=== PATIENT | male | born 1965 | race African-American/Black ===

== ENCOUNTER 2017-10-23 21:28 | Emergency (ER) | payer OTHER ==
--- NOTE | 2017-10-23 21:46 | PDOC ---
History of Present Illness - General Chief Complaint: Chest Pain Stated Complaint: CHEST PAIN Time Seen by Provider: 10/23/17 21:38 - History of Present Illness Initial Comments: This 52-year-old man with a history of Shannan's thyroiditis, presents with a few hour history of lower substernal chest pain radiating to the back. Patient states the pain began while he was drinking beer (while drinking second bottle) . He had no associated shortness of breath/nausea/diaphoresis. Patient states that it was similar to his previous "heartburn" pain but was more severe than previous episodes. The pain has improved although he still has mild pain in that area. Patient usually takes "Tums" for his heartburn. No history of GERD/ known peptic ulcer disease. Patient has not taken H2 nicolette/PPI therapy in the past. Patient denies pain/shortness of breath with stairclimbing or other mild exertion. No change in pain with deep breathing, movement or change in position No history of hypertension/diabetes mellitus/hyperlipidemia/strong family history. Positive history of smoking (patient admits 5 cigarettes per day for many years) Past History - Past Medical History Allergies/Adverse Reactions: Allergies Allergy/AdvReac Type Severity Reaction Status Date / Time No Known Allergies Allergy Verified 06/18/15 16:52 Home Medications: Ambulatory Orders Famotidine [Pepcid] 40 mg PO DAILY #20 tablet 10/23/17 Levothyroxine [Synthroid -] 100 mcg PO DAILY 10/23/17 Anemia: No Asthma: No COPD: No CHF: No Diabetes: No HTN: No Hypercholesterolemia: No Thyroid Disease: Yes (Shannan's thyroiditis) - Suicide/Smoking/Psychosocial Hx Smoking Status: Yes Smoking History: Current every day smoker Have you smoked in the past 12 months: Yes Number of Cigarettes Smoked Daily: 10 'Breaking Loose' booklet given: 08/11/12 Hx Alcohol Use: No Drug/Substance Use Hx: No Substance Use Type: None Review of Systems - Review of Systems Able to Perform ROS?: Yes Comments:: 12 point review of systems is negative except for what is noted in the history of present illness *Physical Exam - Vital Signs Last Vital Signs Temp Pulse Resp BP Pulse Ox 98.8 F 72 18 129/80 100 10/23/17 21:29 10/23/17 21:58 10/23/17 21:58 10/23/17 21:58 10/23/17 21:58 - Physical Exam Comments: GENERAL: Adult male, alert and oriented 3, in no acute distress HEAD: Normal with no signs of trauma. EYES: PERRLA, EOMI, sclera anicteric, conjunctiva clear. ENT: Ears normal, nares patent, oropharynx clear without exudates. Moist mucous membranes. NECK: Normal range of motion, supple without lymphadenopathy, JVD, or masses. LUNGS: Breath sounds equal, clear to auscultation bilaterally. No wheezes, and no crackles. HEART:Regular rate and rhythm, normal S1 and S2 without murmur, rub or gallop. ABDOMEN:.normal bowel sounds No guarding,tenderness or rebound.No masses No distention. EXTREMITIES: Normal range of motion, no edema. No clubbing or cyanosis. No erythema, or tenderness. NEUROLOGICAL: Cranial nerves II through XII grossly intact. Normal speech. No focal neurological deficits. MUSCULOSKELETAL: Back non-tender to palpation, no CVA tenderness SKIN: Warm, Dry, normal turgor, no rashes or lesions noted. 12-lead electrocardiogram was performed and interpreted by me: Normal sinus rhythm at 72 bpm; axis, intervals and wave forms are all normal. No evidence of acute ST or T-wave abnormalities. There is no significant change compared to tracing dated 06/18/15 Heart Score/ECG Review - History History: Slightly suspicious - Electrocardiogram EKG: Non specific repolarization disturbance - Age Age: 45-65 - Risk Factors Risk Factors Heart Score: Yes Smoking History Based on the list above the patient has:: 1-2 risk factors - Troponin Troponin: </= normal limit - Score Heart Score - Total: 3 ED Treatment Course - LABORATORY CBC & Chemistry Diagram: 10/23/17 21:45 10/23/17 21:45 - ADDITIONAL ORDERS Additional order review: Laboratory Results 10/23/17 10/23/17 10/23/17 23:15 23:15 21:45 PT with INR 12.9 INR 1.16 Sodium Potassium Chloride Carbon Dioxide Anion Gap BUN Creatinine Creat Clearance w eGFR Random Glucose Calcium Total Bilirubin AST ALT Alkaline Phosphatase Creatine Kinase 450 H Creatine Kinase Index 0.6 CK-MB (CK-2) 2.8 Troponin I < 0.03 Total Protein Albumin 10/23/17 10/23/17 21:45 21:45 PT with INR INR Sodium 136 Potassium 3.9 Chloride 102 Carbon Dioxide 26 Anion Gap 8 BUN 12 Creatinine 1.1 Creat Clearance w eGFR > 60 Random Glucose 114 H Calcium 8.8 Total Bilirubin 0.5 AST 27 ALT 28 Alkaline Phosphatase 62 Creatine Kinase 490 H Creatine Kinase Index 0.6 CK-MB (CK-2) 3.1 Troponin I < 0.03 Total Protein 7.3 Albumin 4.1 10/23/17 21:45 RBC 5.25 MCV 87.5 MCHC 33.4 RDW 12.9 MPV 7.2 L Neutrophils % 48.1 Lymphocytes % 39.1 Monocytes % 8.2 Eosinophils % 3.6 Basophils % 1.0 - Medications Given in the ED: ED Medications Discontinued Medications Generic Name Dose Route Start Last Admin Trade Name Andi PRN Reason Stop Dose Admin Al Hydroxide/Mg Hydroxide 30 ml 10/23/17 22:40 10/23/17 22:42 Mylanta Oral Suspension - PO 10/23/17 22:41 30 ml ONCE ONE Administration Famotidine/Sodium Chloride 20 mg in 50 mls @ 100 mls/hr 10/23/17 22:42 22:46 Pepcid 20 Mg Premixed Ivpb - IVPB 10/23/17 23:11 100 mls/hr ONCE ONE Administration Medical Decision Making - Medical Decision Making Patient's heart score is 3. Only significant risk factor for coronary artery disease is smoking history. Patient describes lower substernal chest pain, radiating to the back, beginning as he is drinking beer. He states that it is similar to his usual gastrointestinal "heartburn", which is responsive to antacids. This episode is notable because pain is more severe than usual. There are no other associated symptoms. As noted above, 12-lead electrocardiogram shows no evidence of acute ST or T- wave abnormalities First troponin is less than 0.03. Remainder of the laboratory evaluation is essentially normal 10/23/17 23:08 Patient now pain-free after 30 mL Mylanta PO and 20 mg Pepcid IV. Second troponin to be drawn. 10/24/17 00:11 Second troponin less than 0.03. Patient remains pain-free and comfortable. Patient will be discharged with instructions to take Pepcid 40 mg daily until seen by his PMD, Dr. Alcantar. In the meantime, the patient will avoid alcohol and foods that he usually cause him " heartburn". He will return to the emergency room if he has persistent pain or experiences shortness of breath , nausea *DC/Admit/Observation/Transfer Diagnosis at time of Disposition: Atypical chest pain - Discharge Dispostion Disposition: HOME Condition at time of disposition: Stable - Prescriptions Prescriptions: Famotidine [Pepcid] 40 mg PO DAILY #20 tablet - Referrals Referrals: Ele Benito MD [Primary Care Provider] - - Patient Instructions Printed Discharge Instructions: DI for Atypical Chest Pain Additional Instructions: pepcid 40 mg daily you can take tums/maalox as needed for heartburn avoid alcohol for the next week followup with Dr Alcantar within 5-7 days return to ER if you have persistent chest pain, shortness of breath or nausea - Post Discharge Activity
[2017-10-23 21:58] VITALS: BP 129/80; PULSE 72; TEMP 98.8; BMI 36.1
[2017-10-23 22:02] LABS: EOS % 3.6 % (0-4.5); HEMATOCRIT 45.9 % (35.4-49); HEMOGLOBIN 15.3 GM/dl (11.7-16.9); LYMPH % 39.1 % (8-40); MCH 29.2 pg (25.7-33.7); MCHC 33.4 g/dl (32.0-35.9); MEAN CELL VOLUME 87.5 fl (80-96); MEAN PLT VOLUME 7.2 fl (7.5-11.1); MONO % 8.2 % (3.8-10.2); NEUT % 48.1 % (42.8-82.8); PLATELET COUNT 274 K/MM3 (134-434); RBC 5.25 M/mm3 (4.00-5.60); RDW 12.9 % (11.9-15.9); WHITE BLOOD COUNT 5.9 K/mm3 (4.0-10.8)
[2017-10-23 22:12] LABS: INR 1.16 (0.82-1.09); PROTHROMBIN TIME (PATIENT) 12.9 SEC (10.2-13.0)
[2017-10-23 22:17] LABS: ALBUMIN 4.1 g/dl (3.5-5.0); ALK PHOS 62 U/L (32-92); ANION GAP 8 (8-16); BILIRUBIN,TOTAL 0.5 mg/dl (0.2-1.0); BLOOD UREA NITROGEN 12 mg/dl (7-18); CALCIUM 8.8 mg/dl (8.4-10.2); CHLORIDE 102 mmol/L (98-107); CO2 26 mmol/L (22-28); CREATININE 1.1 mg/dl (0.6-1.3); GLUCOSE,RANDOM 114 mg/dl (74-106); POTASSIUM 3.9 mmol/L (3.5-5.1); SGOT/AST 27 U/L (10-42); SGPT/ALT 28 U/L (10-40); SODIUM 136 mmol/L (136-145); TOT PROT 7.3 g/dl (6.4-8.3)
[2017-10-23] MEDS ORDERED: MAG HYDROX/AL HYDROX/SIMETH 30 ML UNIT-DOSE CUP PO ONE (22:40)
[2017-10-23] MEDS ORDERED: FAMOTIDINE 20 MG/50 ML IVPB 20 MG/50 ML MG IVPB ONE ×2 (22:42→22:43)
[2017-10-23] MEDS ORDERED: MAG HYDROX/AL HYDROX/SIMETH 30 ML UNIT-DOSE CUP ONE (22:43)
--- NOTE | 2017-10-24 09:45 | EKG ---
Test Reason : Blood Pressure : / mmHG Vent. Rate : 072 BPM Atrial Rate : 072 BPM P-R Int : 182 ms QRS Dur : 100 ms QT Int : 398 ms P-R-T Axes : 038 043 042 degrees QTc Int : 435 ms NORMAL SINUS RHYTHM NONSPECIFIC T WAVE ABNORMALITY NON-SPECIFIC INTRA-VENTRICULAR CONDUCTION DELAY ABNORMAL ECG Confirmed by LA KLINE MD ([id number]) on 10/24/2017 9:45:33 AM Referred By: Alma VANEGAS Confirmed By:LA KLINE MD
== END 2017-10-23 23:51 | disposition home or self-care (01) ==
LOC: FER 21:28
PROC: 3E033GC Introduction of Other Therapeutic Substance into Peripheral Vein, Percutaneous Approach (ICD-10-PCS; principal; 2017-10-23)
DX: R07.89 Other chest pain (principal); Z87.891 Personal history of nicotine dependence; E06.3 Autoimmune thyroiditis
CPT/HCPCS: 36415; 80053; 82550; 82553; 84484; 85025; 85610; 93005; 99284-25

== ENCOUNTER 2018-12-21 19:45 | Emergency (ER) | payer OTHER ==
[2018-12-21] MEDS ORDERED: ASPIRIN 81 MG CHEWABLE TABLETS PO ONE (20:19)
--- NOTE | 2018-12-21 20:19 | PDOC ---
Rapid Medical Evaluation Time Seen by Provider: 12/21/18 20:18 Medical Evaluation: Allergies Allergy/AdvReac Type Severity Reaction Status Date / Time No Known Allergies Allergy Verified 06/18/15 16:52 12/21/18 20:18 HPI: CP and L shoulder and arm pain x4 days PE: No gross deficits ORDERS: Cardiac work up Discharge Disposition - Diagnosis Chest pain - Referrals - Patient Instructions - Post Discharge Activity
[2018-12-21 20:22] VITALS: BP 130/80; PULSE 74; TEMP 97.8; BMI 36.9
[2018-12-21] MEDS ORDERED: ASPIRIN 81 MG CHEWABLE TABLETS ONE (21:24)
[2018-12-21 21:34] LABS: BASO % 0.9 % (0-2.0); EOS % 4.3 % (0-4.5); HEMOGLOBIN 14.6 GM/dL (11.7-16.9); MCH 29.2 pg (25.7-33.7); MCHC 33.2 g/dl (32.0-35.9); MEAN PLT VOLUME 7.5 fl (7.5-11.1); MONO % 7.2 % (3.8-10.2); NEUT % 49.6 % (42.8-82.8); PLATELET COUNT 232 K/MM3 (134-434); RDW 13.7 % (11.9-15.9)
--- NOTE | 2018-12-21 21:37 | PDOC ---
History of Present Illness - General Chief Complaint: Chest Pain Stated Complaint: CHEST PAIN Time Seen by Provider: 12/21/18 20:18 History Source: Patient Exam Limitations: No Limitations - History of Present Illness Initial Comments: 12/21/18 21:33 53yo M with PMH of BPH presenting to ED with complaint of L shoulder pain radiating to the arm and L chest pain x3d. Pt states he was at work when he started to feel the pain. Pain is intermittent, sometimes associated with movements. He has not had pain like this before. Also endorses soreness in bilateral calves. Denies injury, cough, sob, fever, chills, pain with exertion, abdominal pain, n/v/d, back pain, neck pain, headache. No family history of ID. Patient does smoke 1ppd. No recent travel, leg swelling. PMD: Ortiz PMH: see hpi PSH: none Meds: Tamsulosin Allergies: nkda Social: 1ppd Past History - Past Medical History Allergies/Adverse Reactions: Allergies Allergy/AdvReac Type Severity Reaction Status Date / Time No Known Allergies Allergy Verified 06/18/15 16:52 Home Medications: Ambulatory Orders Famotidine [Pepcid] 40 mg PO DAILY #20 tablet 10/23/17 Levothyroxine [Synthroid -] 100 mcg PO DAILY 10/23/17 Anemia: No Asthma: No COPD: No CHF: No Diabetes: No HTN: No Hypercholesterolemia: No Thyroid Disease: Yes (Shannan's thyroiditis) - Suicide/Smoking/Psychosocial Hx Smoking Status: Yes Smoking History: Current every day smoker Have you smoked in the past 12 months: Yes Number of Cigarettes Smoked Daily: 20 Information on smoking cessation initiated: Yes 'Breaking Loose' booklet given: 08/11/12 Hx Alcohol Use: No Drug/Substance Use Hx: No Substance Use Type: None Review of Systems - Review of Systems Constitutional: No: Symptoms Reported HEENTM: No: Symptoms Reported Respiratory: No: Symptoms reported Cardiac (ROS): Yes: See HPI ABD/GI: No: Symptoms Reported : No: Symptoms Reported Musculoskeletal: Yes: See HPI Integumentary: No: Symptoms Reported Neurological: No: Symptoms reported *Physical Exam - Vital Signs Last Vital Signs Temp Pulse Resp BP Pulse Ox 97.8 F 74 20 130/80 99 12/21/18 20:18 12/21/18 20:18 08/12/19 20:18 12/21/18 20:18 12/21/18 20:18 - Physical Exam General Appearance: Yes: Nourished, Appropriately Dressed. No: Apparent Distress HEENT: positive: EOMI, CRISTIN Neck: positive: Trachea midline, Supple. negative: Lymphadenopathy (R), Lymphadenopathy (L) Respiratory/Chest: positive: Lungs Clear, Normal Breath Sounds. negative: Chest Tender, Crackles, Rales, Stridor, Wheezing Cardiovascular: positive: Regular Rhythm, Regular Rate, S1, S2. negative: Edema , JVD, Murmur Vascular Pulses: Dorsalis-Pedis (R): 2+, Doralis-Pedis (L): 2+ Gastrointestinal/Abdominal: positive: Normal Bowel Sounds, Soft. negative: Tender Musculoskeletal: positive: Muscle Spasm (L side cervical spine. L trapezius tenderness reproducing pain). negative: CVA Tenderness, Vertebral Tenderness Extremity: positive: Normal Capillary Refill. negative: Pedal Edema, Swelling, Calf Tenderness Integumentary: positive: Normal Color, Dry, Warm Neurologic: positive: cell tester II-XII NML intact, Fully Oriented, Alert, Normal Mood/ Affect, Normal Response, Motor Strength 5/5 ED Treatment Course - LABORATORY CBC & Chemistry Diagram: 12/21/18 21:15 12/21/18 21:15 Medical Decision Making - Medical Decision Making 12/21/18 21:36 53yo M with PMH of BPH presenting to ED with complaint of L shoulder pain radiating to the arm and L chest pain x3d. Pt states he was at work when he started to feel the pain. Pain is intermittent, sometimes associated with movements. He has not had pain like this before. Also endorses soreness in bilateral calves. Denies injury, cough, sob, fever, chills, pain with exertion, abdominal pain, n/v/d, back pain, neck pain, headache. No family history of ID. Patient does smoke 1ppd. No recent travel, leg swelling. Vitals: wnl PE: reproducible shoulder/arm pain. no chest wall tenderness. ddx includes but not limited to msk/strain, acs, gerd, radiculopathy likely msk given reproducibility but will get labs and trop, ekg, cxr. 12/21/18 21:48 ekg: nsr at 72bpm pr 160 qtc 427. no bandar or depressions. flat T in aVL. no TWI 12/22/18 03:27 labs wnl. Given Tylenol and ASA Pt stats he is feeling better. CXR: no infiltrates or consolidations. Pt likely has radiculopathy and msk pain. low suspicion for ACS given duration and reporducibility of pain. Will dc home with neuro and cadiology f/u. pt agrees to plan. given return precautions *DC/Admit/Observation/Transfer Diagnosis at time of Disposition: Musculoskeletal pain Chest pain Qualifiers: Chest pain type: unspecified Qualified Code(s): R07.9 - Chest pain, unspecified Radiculopathy Qualifiers: Spinal region: unspecified Qualified Code(s): M54.10 - Radiculopathy, site unspecified - Discharge Dispostion Disposition: HOME Condition at time of disposition: Improved - Referrals Referrals: Royal Alcantar MD [Primary Care Provider] - Larry Mazariegos MD [Staff Physician] - Sachin Hanna MD [Staff Physician] - - Patient Instructions Printed Discharge Instructions: DI for Cervical Radiculopathy, DI for Chest Pain Additional Instructions: You were seen in the emergency room today for shoulder, arm and chest pain. This is likely due to the muscles. Your blood work, ekg and xray are normal. You might have cervical radiculopathy which is pain that is in the neck and/or shoulders and goes down your arm. You can take Tylenol or Motrin for the pain as needed. I recommend following up with a neurologist for the radiculopathy and a public information coordinator as well. Information is provided below. Come back to the emergency room for worsening chest pain, difficulty breathing, weakness in the left arm, numbness/tingling or if any new concerning symptom develops. Thank you - Post Discharge Activity
[2018-12-21] MEDS ORDERED: ACETAMINOPHEN 500 MG TABLET (FP) PO ONE (21:43)
[2018-12-21 21:51] LABS: INR 1.06 (0.83-1.09); PROTHROMBIN TIME (PATIENT) 12.5 SEC (9.7-13.0)
[2018-12-21 22:01] LABS: ALBUMIN 3.9 g/dl (3.4-5.0); BILIRUBIN,TOTAL 0.6 mg/dL (0.2-1); CALCIUM 8.8 mg/dL (8.5-10.1); CREATININE 1.3 mg/dL (0.55-1.3); MAGNESIUM 2.1 mg/dL (1.8-2.4); POTASSIUM 4.6 mmol/L (3.5-5.1)
[2018-12-21] MEDS ORDERED: ACETAMINOPHEN 325 MG TABLET (FP) ONE (22:28)
--- NOTE | 2018-12-21 22:34 | PDOC ---
Documentation entered by Rochelle Pettit SCRIBE, acting as scribe for Ventura Sanchez MD. Ventura Sanchez MD: This documentation has been prepared by the dwaineibe, Rochelle Pettit SCRIBE, under my direction and personally reviewed by me in its entirety. I confirm that the documentation accurately reflects all work, treatment, procedures, and medical decision making performed by me. Attending Attestation - Resident Resident Name: Sa Lillyira - ED Attending Attestation I have performed the following: I have examined & evaluated the patient, The case was reviewed & discussed with the resident, I agree w/resident's findings & plan, Exceptions are as noted - HPI HPI: 12/21/18 21:51 The patient is a 53-year-old male, with a past medical history of BPH and Shannan's thyroiditis, who presents to the ED with LT sided chest pain that began while at work 3 days ago. The patient describes the pain as intermittent, throbbing sensation, radiating from his neck to his LT shoulder to his chest and down his LT arm, and exacerbated when he moves his arm. The patient denies experiencing this pain in the past. The patient denies fevers, chills, nausea, vomiting, diarrhea, or abdominal pain. Denies any palpitations or shortness of breath. Denies any weakness, dizziness, or changes in strength or sensation. Allergies: NKA - Physicial Exam PE: 12/21/18 21:52 GENERAL: Awake, alert, and fully oriented, in no acute distress. HEAD: No signs of trauma EYES: PERRLA, EOMI, sclera anicteric, conjunctiva clear ENT: Auricles normal inspection, hearing grossly normal, nares patent, oropharynx clear without exudates. Moist mucosa NECK: + L paraspinal TTP, no midline tenderness or stepoffs, Normal ROM, supple , no lymphadenopathy, JVD, or masses LUNGS: Breath sounds equal, clear to auscultation bilaterally. No wheezes, and no crackles HEART: Regular rate and rhythm, normal S1 and S2, no murmurs, rubs or gallops ABDOMEN: Soft, nontender, normoactive bowel sounds. No guarding, no rebound. No masses EXTREMITIES: Normal range of motion, no edema. No clubbing or cyanosis. No cords, erythema, or tenderness NEUROLOGICAL: Cranial nerves II through XII intact. 5/5 strength and sensation in all extremities, Normal speech, normal gait, normal cerebellar function SKIN: Warm, Dry, normal turgor, no rashes or lesions noted. - Medical Decision Making 12/21/18 22:42 53 M with L sided chest pain. Suspect this is msk in etiology, as pain radiates from neck down his arm. Possible radiculopathy. Pt with no ischemic EKG changes. - Labs, trop - CXR - Pain control 12/21/18 22:57 Labs wnl, trop negative CXR clear on my read Pt is well appearing, with normal vitals. Clinically stable for DC at this time. I discussed the physical exam findings, ancillary test results and final diagnoses with the patients family. I answered all of their questions. The family was satisfied with the care received and felt comfortable with the discharge plan and treatment plan. They agree to follow up with the primary care physician within 24-72 hours.
--- NOTE | 2018-12-22 11:25 | EKG ---
Test Reason : Blood Pressure : / mmHG Vent. Rate : 072 BPM Atrial Rate : 072 BPM P-R Int : 160 ms QRS Dur : 082 ms QT Int : 390 ms P-R-T Axes : 038 024 042 degrees QTc Int : 427 ms NORMAL SINUS RHYTHM NORMAL ECG WHEN COMPARED WITH ECG OF 23-OCT-2017 21:37, NO SIGNIFICANT CHANGE WAS FOUND Confirmed by Yoan Mariano MD ([id number]) on 12/22/2018 11:25:32 AM Referred By: Confirmed By:Yoan Mariano MD
== END 2018-12-21 23:03 | disposition home or self-care (01) ==
LOC: JER 19:45
DX: R07.89 Other chest pain (principal); N40.0 Benign prostatic hyperplasia without lower urinary tract symptoms; E06.3 Autoimmune thyroiditis; F17.210 Nicotine dependence, cigarettes, uncomplicated
CPT/HCPCS: 36415; 71046-TC-FY; 80053; 82550; 82553; 83735; 84484; 85025; 85610; 93005; 93010; 99282-25